=== PATIENT | female | born 1945 | race Hispanic/Latino ===

== ENCOUNTER 2021-05-22 14:11 | Emergency (ER) | payer OTHER ==
[~2021-05-22] VITALS: Ht 160 cm; Wt 63.5 kg
[~2021-05-22 14:11] MED LIST: AMLO-257 PO; INS7030 SQ; LISI10TA24 PO; METF-446 PO; PRAV20TA4 PO
[2021-05-22] MEDS ORDERED: FAMOTIDINE 20MG TAB PO ONE (15:00)
[2021-05-22] MEDS ORDERED: DIPHENHYDRAMINE HCL 25 MG CAPSULE PO ONE (15:00)
[2021-05-22] MEDS ORDERED: SOLU-MEDROL 125MG VIAL IM ONE (15:00)
[2021-05-22] MEDS ORDERED: SOLU-MEDROL 125MG VIAL ONE (15:05)
[2021-05-22] MEDS ORDERED: FAMOTIDINE 20MG TAB ONE (15:05)
[2021-05-22] MEDS ORDERED: DIPHENHYDRAMINE HCL 25 MG CAPSULE ONE (15:05)
[2021-05-22] MEDS ORDERED: FAMO-136 PO (15:54)
[2021-05-22] MEDS ORDERED: CETI1SOL17 PO (15:54)
[2021-05-22 16:26] VITALS: BP 153/69
== END 2021-05-22 16:56 | disposition home or self-care (01) ==
LOC: EDH 14:11
DX: L50.9 Urticaria, unspecified (principal); I10 Essential (primary) hypertension; E11.9 Type 2 diabetes mellitus without complications; E78.00 Pure hypercholesterolemia, unspecified; Z88.0 Allergy status to penicillin; Z88.2 Allergy status to sulfonamides; Z79.4 Long term (current) use of insulin; Z79.52 Long term (current) use of systemic steroids; Z79.899 Other long term (current) drug therapy; Z90.49 Acquired absence of other specified parts of digestive tract
CPT/HCPCS: 96372; 99283; J2930; Q0163

== ENCOUNTER 2021-07-13 18:49 | Emergency (ER) | payer OTHER ==
[~2021-07-13] VITALS: Ht 160 cm; Wt 63.5 kg
[~2021-07-13 18:49] MED LIST changes: +CETI1SOL17 PO; +FAMO-136 PO
[2021-07-13] MEDS ORDERED: IBUPROFEN 600 MG TABLET PO ONE (19:00)
[2021-07-13 23:09] VITALS: BP 131/94
== END 2021-07-13 23:15 | disposition home or self-care (01) ==
LOC: EDH 18:49
DX: S00.03XA Contusion of scalp, initial encounter (principal); E11.9 Type 2 diabetes mellitus without complications; E78.00 Pure hypercholesterolemia, unspecified; I10 Essential (primary) hypertension; Z79.4 Long term (current) use of insulin; Z79.899 Other long term (current) drug therapy; Z88.0 Allergy status to penicillin; Z88.2 Allergy status to sulfonamides; Z90.49 Acquired absence of other specified parts of digestive tract; X58.XXXA Exposure to other specified factors, initial encounter; Y93.89 Activity, other specified; Y92.89 Other specified places as the place of occurrence of the external cause; Y99.8 Other external cause status
CPT/HCPCS: 70450

== ENCOUNTER → 2021-10-30 | Outpatient (CLI) | payer OTHER ==
[~2021-10-30] MED LIST changes: -CETI1SOL17 PO; +CIPR-278 PO; +CYCL30DR OU; -FAMO-136 PO; +FAMO20TA8 PO; -INS7030 SQ; -LISI10TA24 PO; +LISI40TA9 PO; +NAPR-1023 PO; +NPH,100V11 SQ; -PRAV20TA4 PO; +PRAV40TA3 PO
== END | disposition home or self-care (01) ==
LOC: RAH 14:17
PROVIDERS: ATTEND Internal Medicine
DX: I60.9 Nontraumatic subarachnoid hemorrhage, unspecified (principal)
CPT/HCPCS: 70450

== ENCOUNTER 2022-06-29 13:21 | Observation (INO) | payer OTHER ==
[~2022-06-29] VITALS: Ht 160 cm; Wt 59.9 kg
[2022-06-29 15:13] LABS: BASOPHILS % (AUTO) 0.4 % (0.0-5.0); EOSINOPHILS % (AUTO) 0.1 % (0.0-8.0); HEMATOCRIT 39.9 % (36-48); LYMPHOCYTES % (AUTO) 7.5 % (21.0-51.0); MEAN CORPUSCULAR HEMOGLOBIN 27.6 pg (27.0-33.0); MEAN CORPUSCULAR HGB CONC 32.3 g/dL (32.0-36.0); MEAN CORPUSCULAR VOLUME 85.4 fL (79-99); MONOCYTES % (AUTO) 3.9 % (3.0-13.0); NEUTROPHILS % (AUTO) 87.7 % (40.0-77.0); PLATELET COUNT (AUTO) 277 K/uL (130-400); RED BLOOD CELL COUNT(AUTO) 4.67 MIL/uL (4.00-5.50); RED CELL DISTRIBUTION WIDTH 13.2 % (11.0-15.5); WHITE BLOOD COUNT (AUTO) 11.2 K/uL (4.8-10.8)
[2022-06-29 15:31] LABS: CREATININE 0.9 mg/dL (0.5-1.5); POTASSIUM 4.4 mmol/L (3.5-5.1)
[2022-06-29 15:36] LABS: ALBUMIN 3.6 g/dL (3.5-5.0); TOTAL PROTEIN, SERUM 7.6 g/dL (6.0-8.3)
[2022-06-29] MEDS ORDERED: 0.9%NACL 1000ML 1,000 ML IV ONE (16:00)
[2022-06-29 16:04] LABS: APPEARANCE,URINE CLEAR (CLEAR); BILIRUBIN,URINE NEGATIVE (NEGATIVE); COLOR,URINE COLORLESS (YELLOW); GLUCOSE, URINE (UA) NEGATIVE (NEGATIVE); KETONES,URINE NEGATIVE (NEGATIVE); LEUKOCYTE ESTERASE ,URINE NEGATIVE Leu/uL (NEGATIVE); NITRATE,URINE NEGATIVE (NEGATIVE); OCCULT BLOOD,URINE NEGATIVE (NEGATIVE); PROTEIN,URINE NEGATIVE (NEGATIVE); UROBILINOGEN,URINE 0.2 mg/dL (0.2-1.0)
[2022-06-29 16:05] LABS: RBC,URINE 0-1 /HPF (0-1); SQUAMOUS EPITHELIAL CELL,UR RARE /HPF (0-2); WBC,URINE 0-1 /HPF (0-1)
[2022-06-29 23:12] VITALS: BP 147/76
[2022-06-30] VITALS: BP 146/61
[2022-06-30 02:08] LABS: BASOPHILS % (AUTO) 0.6 % (0.0-5.0); EOSINOPHILS % (AUTO) 1.2 % (0.0-8.0); HEMATOCRIT 39.3 % (36-48); LYMPHOCYTES % (AUTO) 35.6 % (21.0-51.0); MEAN CORPUSCULAR HEMOGLOBIN 27.6 pg (27.0-33.0); MEAN CORPUSCULAR HGB CONC 32.6 g/dL (32.0-36.0); MEAN CORPUSCULAR VOLUME 84.9 fL (79-99); MONOCYTES % (AUTO) 10.1 % (3.0-13.0); NEUTROPHILS % (AUTO) 52.3 % (40.0-77.0); PLATELET COUNT (AUTO) 279 K/uL (130-400); RED BLOOD CELL COUNT(AUTO) 4.63 MIL/uL (4.00-5.50); RED CELL DISTRIBUTION WIDTH 13.2 % (11.0-15.5); WHITE BLOOD COUNT (AUTO) 6.5 K/uL (4.8-10.8)
[2022-06-30 02:22] LABS: CREATININE 0.7 mg/dL (0.5-1.5); POTASSIUM 4.4 mmol/L (3.5-5.1)
[2022-06-30 02:24] LABS: ALBUMIN 3.3 g/dL (3.5-5.0)
[2022-06-30 03:50] VITALS: BP 127/61
[2022-06-30 07:00] VITALS: BP 127/64
[2022-06-30] MEDS ORDERED: GLUCAGON 1MG KIT 1 MG ML IM PRN (11:00)
[2022-06-30] MEDS ORDERED: DEXTROSE 50%-WATER 50 ML DISP.SYRIN IV PRN (11:00)
[2022-06-30] MEDS: INSULIN HUMULIN R 100 UNIT/ML 3ML SQ SCH ×3 (11:30→21:33)
[2022-06-30 12:30] VITALS: BP 137/66
[2022-06-30 16:00] VITALS: BP 123/58
[2022-06-30 20:27] VITALS: BP 127/61
[2022-07-01] VITALS: BP 121/63
[2022-07-01 04:00] VITALS: BP 123/63
[2022-07-01] MEDS: INSULIN HUMULIN R 100 UNIT/ML 3ML SQ SCH (06:43)
[2022-07-01 08:34] VITALS: BP 128/64
== END 2022-07-01 10:31 | disposition home or self-care (01) ==
LOC: EDH 13:21 → EDHIP 16:16 → 2AH 22:18
PROVIDERS: ADMIT Internal Medicine; ATTEND Internal Medicine
DX: R55 Syncope and collapse (principal); E11.649 Type 2 diabetes mellitus with hypoglycemia without coma; I10 Essential (primary) hypertension; E78.00 Pure hypercholesterolemia, unspecified; Z79.84 Long term (current) use of oral hypoglycemic drugs; Z79.899 Other long term (current) drug therapy; Z90.49 Acquired absence of other specified parts of digestive tract; Z98.890 Other specified postprocedural states
CPT/HCPCS: 96360; 96361; 99284; 82550 ×3; 83874 ×3; 84484 ×4; 80053 ×2; 85025 ×2; 82948 ×6; 83605 ×2; 81003; 81001; 36415 ×2; 70450; 93005; 96372; 93306; 93356; 70551; 70544; 70547; G0378 ×40; J1815